=== PATIENT | female | born 1970 | race Two or more races ===

== ENCOUNTER → 2017-06-21 14:25 | Outpatient (CLI) | payer MEDICAID | END | disposition home or self-care (01) | LOC: D.MAMMO 11:30 | DX: Z12.31 Encounter for screening mammogram for malignant neoplasm of breast (principal) ==

== ENCOUNTER → 2017-07-06 09:00 | Outpatient (CLI) | payer MEDICAID | END | disposition home or self-care (01) | LOC: D.MAMMO 06-29 09:30 → D.US 06-29 10:30 → D.MAMMO 09:00 | DX: R92.8 Other abnormal and inconclusive findings on diagnostic imaging of breast (principal) ==

== ENCOUNTER 2018-07-22 08:00 | Outpatient (CLI) | payer MEDICAID | END 2018-07-22 09:00 | disposition home or self-care (01) | LOC: D.MAMMO | DX: Z12.31 Encounter for screening mammogram for malignant neoplasm of breast (principal) ==